=== PATIENT | female | born 1985 | race Caucasian/White ===

== ENCOUNTER 2018-10-27 01:01 | Emergency (ER) | payer MEDICAID ==
[~2018-10-27] VITALS: Ht 170.2 cm; Wt 111.6 kg
[2018-10-27 01:04] VITALS: BP 133/86
== END 2018-10-27 02:25 | disposition home or self-care (01) ==
LOC: ED 02:19
DX: J02.8 Acute pharyngitis due to other specified organisms (principal); B97.89 Other viral agents as the cause of diseases classified elsewhere
CPT/HCPCS: 87081; 87147; 87880; 99284

== ENCOUNTER 2019-08-21 05:47 | Emergency (ER) | payer MEDICAID ==
[~2019-08-21] VITALS: Ht 170.2 cm; Wt 110.0 kg
--- NOTE | 2019-08-21 06:11 | NUR ---
PT RESTING ON GURNEY, MONITORS APPLIED, SIDERAILS UP X2, CALL LIGHT WITHIN REACH
--- NOTE | 2019-08-21 06:45 | NUR ---
REPORT GIVEN TO TANIA BEASLEY
[2019-08-21 07:06] VITALS: BP 124/76
== END 2019-08-21 07:08 | disposition home or self-care (01) ==
LOC: ED 06:24
DX: S29.012A Strain of muscle and tendon of back wall of thorax, initial encounter (principal); S29.011A Strain of muscle and tendon of front wall of thorax, initial encounter; F17.200 Nicotine dependence, unspecified, uncomplicated; V49.59XA Passenger injured in collision with other motor vehicles in traffic accident, initial encounter; Y93.89 Activity, other specified; Y92.89 Other specified places as the place of occurrence of the external cause; Y99.8 Other external cause status
CPT/HCPCS: 99284

== ENCOUNTER 2019-11-23 20:29 | Emergency (ER) | payer MEDICAID ==
[~2019-11-23] VITALS: Ht 170.2 cm; Wt 104.9 kg
[2019-11-23 20:37] VITALS: BP 130/84
--- NOTE | 2019-11-23 20:54 | NUR ---
Pt here for lower back pain. Pt would a like a perscription for what she was given last time she was here for her back pain. Pt denies any new trauma and reports most of pain is in lower back. Pt resting in bed and nadn. vss
[2019-11-23] MEDS ORDERED: KETOROLAC 30 MG/1 ML IM ONE (21:00)
[2019-11-23] MEDS ORDERED: METHOCARBAMOL 750 MG TABLET PO ONE (21:00)
[2019-11-23] MEDS ORDERED: KETOROLAC 60 MG/2 ML ONE (21:06)
[2019-11-23] MEDS ORDERED: METHOCARBAMOL 750 MG TABLET ONE (21:06)
--- NOTE | 2019-11-23 21:28 | NUR ---
Patient/Caregiver given discharge instructions and they have confirmed that they understand the instructions. Patient ambulatory with steady gait.
== END 2019-11-23 21:30 | disposition home or self-care (01) ==
LOC: ED 21:29
DX: S39.012A Strain of muscle, fascia and tendon of lower back, initial encounter (principal); F17.200 Nicotine dependence, unspecified, uncomplicated; V89.2XXA Person injured in unspecified motor-vehicle accident, traffic, initial encounter; Y93.89 Activity, other specified; Y92.89 Other specified places as the place of occurrence of the external cause; Y99.8 Other external cause status
CPT/HCPCS: 96372; 99283; J1885

== ENCOUNTER 2020-02-06 19:37 | Emergency (ER) | payer MEDICAID ==
[~2020-02-06] VITALS: Ht 170.2 cm; Wt 107.6 kg
[2020-02-06 20:16] LABS: HCG UR SG 1.015 (1.003-1.030)
[2020-02-06 20:17] LABS: MICROSCOPIC INDICATED
--- NOTE | 2020-02-06 22:14 | NUR ---
pt called to room from lobby
--- NOTE | 2020-02-06 23:09 | NUR ---
PT PRESENTS TO THE ER TODAY FOR FLANK PAIN. STATES HER BACK STARTED HURTING AFTER MOVING FURINTURE LAST WEEK. PT ALSO C/O RIGHT SIDE ABD PAIN. PT STATES SHE WAS TESTED FOR GONORRHEA, UNCLEAR IF TREATED AND SHE HAD AN THIS WEEK.
[2020-02-06] MEDS ORDERED: CEFTRIAXONE 250 MG IM ONE (23:30)
[2020-02-06] MEDS ORDERED: AZITHROMYCIN 500 MG TABLET PO ONE (23:30)
[2020-02-06] MEDS ORDERED: KETOROLAC 30 MG/1 ML IM ONE (23:30)
[2020-02-06] MEDS ORDERED: KETOROLAC 30 MG/1 ML ONE (23:44)
[2020-02-06] MEDS ORDERED: CEFTRIAXONE 250 MG ONE (23:44)
[2020-02-06] MEDS ORDERED: AZITHROMYCIN 500 MG TABLET ONE (23:44)
[2020-02-06] MEDS ORDERED: LIDOCAINE-MPF 1%, 2ML ONE (23:45)
[2020-02-06 23:58] VITALS: BP 120/66
== END 2020-02-07 00:13 | disposition home or self-care (01) ==
LOC: ED 22:45
DX: N10 Acute pyelonephritis (principal); N39.0 Urinary tract infection, site not specified; A64 Unspecified sexually transmitted disease; F17.210 Nicotine dependence, cigarettes, uncomplicated
CPT/HCPCS: 81001; 81025; 87077; 87086; 87491; 87591; 96372; 99284; 99406; J0696; J1885; 87186

== ENCOUNTER 2020-03-07 14:24 | Emergency (ER) | payer MEDICAID ==
[~2020-03-07] VITALS: Ht 170.2 cm; Wt 110.0 kg
[2020-03-07 15:38] LABS: BASOPHILS % (AUTO) 1 % (0-1); EOSINOPHILS % (AUTO) 2 % (1-7); LYMPHOCYTES % (AUTO) 39 % (22-44); MEAN CORPUSCULAR HEMOGLOBIN 26.6 pg (27.0-34.8); MEAN CORPUSCULAR HGB CONC 32.9 g/dL (32.4-35.8); MEAN PLATELET VOLUME 8.2 fL (7.4-10.4); MONOCYTES % (AUTO) 6 % (2-9); NEUTROPHILS % (AUTO) 53 % (42-75); PLATELET COUNT 291 x10^3/uL (130-400); RED BLOOD COUNT 5.11 x10^6/uL (3.82-5.3); RED CELL DISTRIBUTION WIDTH 16.5 % (9.6-15.2)
[2020-03-07 15:40] LABS: MD NO
--- NOTE | 2020-03-07 15:47 | NUR ---
TABLE FILLER: PT AMBULATORY TO ROOM FROM LOBBY
[2020-03-07 15:50] LABS: ALANINE AMINOTRANSFERASE 30 U/L (12-78); ALBUMIN 4.1 g/dL (3.4-5.0); ANION GAP 4 mmol/L (5-15); CALCIUM 9.5 mg/dL (8.5-10.1); CHLORIDE 106 mmol/L (98-107)
[2020-03-07 15:54] LABS: ALKALINE PHOSPHATASE 76 U/L (45-117); BILIRUBIN,TOTAL 0.3 mg/dL (0.2-1.0); TOTAL PROTEIN 8.6 g/dL (6.4-8.2)
--- NOTE | 2020-03-07 15:59 | NUR ---
FIRST ENCOUNTER WITH PT: PT PRESENTED TO ED D/T CPX1 WEEK. PT STATES CP RADIATES TO BACK AND RIGHT ARMPIT. +SOB. DENIES N/V.
[2020-03-07 16:04] LABS: MICROSCOPIC AUTO
--- NOTE | 2020-03-07 16:58 | NUR ---
PT BEING DC HOME IN A STABLE CONDITION. DC INSTRUCTIONS DISCUSSED WITH PT. PT VERBALIZED UNDERSTANDING. NO FURTHER QUESTIONS OR CONCERNS EXPRESSED AT THAT TIME.
[2020-03-07 16:59] VITALS: BP 115/71
== END 2020-03-07 17:00 | disposition home or self-care (01) ==
LOC: ED 16:50
DX: M94.0 Chondrocostal junction syndrome [Tietze] (principal); R07.89 Other chest pain; R10.9 Unspecified abdominal pain; F17.200 Nicotine dependence, unspecified, uncomplicated
CPT/HCPCS: 36415; 71045; 76700; 80053; 81001; 83690; 84703; 85025; 87086; 93005; 99285

== ENCOUNTER 2020-08-05 00:33 | Inpatient (IN) | payer MEDICAID ==
[~2020-08-05] VITALS: Ht 170.2 cm; Wt 113.6 kg
[2020-08-05 01:11] LABS: MICROSCOPIC INDICATED
[2020-08-05 01:22] VITALS: BP 122/73
[2020-08-05] MEDS ORDERED: TERBUTALINE 1 MG/ML, 1ML ONE (01:49)
[2020-08-05] MEDS ORDERED: TERBUTALINE 1 MG/ML, 1ML SQ ONE (02:00)
[2020-08-05] MEDS: LACTATED RINGERS 1,000 ML IV SCH ×7 (03:45→20:00)
[2020-08-05] MEDS ORDERED: MAGNESIUM SULF. PMX 20GM/500ML 500 ML IV SCH (04:30)
[2020-08-05] MEDS ORDERED: MAGNESIUM SULFATE PMX 2GM/50ML 50 ML IVPB ONE (04:30)
[2020-08-05] MEDS ORDERED: MAGNESIUM SULFATE PMX 4GM/100M 100 ML IVPB ONE (04:30)
[2020-08-05] MEDS ORDERED: BETAMETHASONE 6 MG/ML, 5ML IM SCH (04:30)
[2020-08-05 07:28] LABS: BASOPHILS % (AUTO) 0 % (0-1); EOSINOPHILS % (AUTO) 0 % (1-7); LYMPHOCYTES % (AUTO) 11 % (22-44); MEAN CORPUSCULAR HEMOGLOBIN 27.5 pg (27.0-34.8); MEAN CORPUSCULAR HGB CONC 32.5 g/dL (32.4-35.8); MEAN PLATELET VOLUME 7.8 fL (7.4-10.4); MONOCYTES % (AUTO) 6 % (2-9); NEUTROPHILS % (AUTO) 83 % (42-75); PLATELET COUNT 249 x10^3/uL (130-400)
[2020-08-05 07:56] LABS: MD SCAN
[2020-08-05] MEDS ORDERED: SODIUM CITRATE/CITRIC ACID 15 ML UDC ONE ×2 (08:54→08:59)
[2020-08-05] MEDS ORDERED: METOCLOPRAMIDE 5 MG/ML, 2ML ONE ×2 (08:54→08:59)
[2020-08-05] MEDS ORDERED: LACTATED RINGERS 1,000 ML IV SCH (09:00)
[2020-08-05] MEDS ORDERED: SODIUM CITRATE/CITRIC ACID 30 ML UDC PO ONE (09:00)
[2020-08-05] MEDS ORDERED: AZITHROMYCIN 500 MG in SODIUM CHLORIDE 0.9% 250 ML IV ONE (09:00)
[2020-08-05] MEDS ORDERED: ONDANSETRON 2MG/ML, 2ML IVPush ONE (09:00)
[2020-08-05] MEDS ORDERED: AMPICILLIN 2 GM in SODIUM CHLORIDE 0.9% 100 ML IV SCH (09:00)
[2020-08-05] MEDS ORDERED: LACTATED RINGERS 1,000 ML IVBOLUS ONE (09:00)
[2020-08-05] MEDS ORDERED: NEWBORN KIT ONE (09:02)
[2020-08-05] MEDS ORDERED: OXYTOCIN 30U/ 0.9% NaCL 500ML 500 ML ONE (09:15)
[2020-08-05] MEDS ORDERED: FENTANYL PF 100 MCG/2ML ONE (09:19)
[2020-08-05 09:25] LABS: CLUE CELLS PRESENT (NONE SEEN); WET PREP WBCS MANY (FEW)
[2020-08-05] MEDS ORDERED: CEFAZOLIN 1,000 MG ONE ×2 (09:33)
[2020-08-05] MEDS ORDERED: ONDANSETRON 2MG/ML, 2ML ONE (09:34)
[2020-08-05] MEDS ORDERED: KETOROLAC 30 MG/1 ML ONE (09:34)
[2020-08-05] MEDS ORDERED: SODIUM CHLORIDE 0.9% PF 10ML ONE ×2 (09:34)
[2020-08-05] MEDS ORDERED: EPHEDRINE 50 MG/ML, 1ML ONE (09:34)
[2020-08-05] MEDS ORDERED: PHENYLEPHRINE 10 MG/ML ONE (09:34)
[2020-08-05] MEDS ORDERED: OXYTOCIN 10 UNITS/ML, 1ML ONE ×4 (09:34→11:05)
[2020-08-05 09:53] LABS: AMPHETAMINE SCREEN, URINE Negative (Negative); BARBITURATE SCREEN, URINE Negative (Negative); BENZODIAZEPINE SCREEN, URINE Negative (Negative); CANNABINOID SCREEN, URINE Negative (Negative); COCAINE SCREEN, URINE Negative (Negative); METHADONE SCREEN, URINE Negative (Negative); OPIATE SCREEN, URINE Negative (Negative)
[2020-08-05] MEDS ORDERED: IBUPROFEN 800 MG TABLET PO PRN (10:00)
[2020-08-05] MEDS ORDERED: MISOPROSTOL 200 MCG TABLET PR PRN (10:00)
[2020-08-05] MEDS ORDERED: ONDANSETRON 2MG/ML, 2ML IV PRN (10:00)
[2020-08-05] MEDS ORDERED: SIMETHICONE 80 MG CHEW TAB PO PRN (10:00)
[2020-08-05] MEDS ORDERED: HYDROmorphone 1 MG/ML, 1ML INJ ONE (10:37)
[2020-08-05] MEDS ORDERED: GENTAMICIN PER PHARMACY MC SCH (11:30)
[2020-08-05] MEDS: KETOROLAC 30 MG/1 ML IV SCH ×3 (11:52→23:57)
[2020-08-05] MEDS: OXYTOCIN 30U/ 0.9% NaCL 500ML 500 ML IV SCH ×2 (12:00→20:00)
[2020-08-05] MEDS ORDERED: GENTAMICIN 160 MG in SODIUM CHLORIDE 0.9% 50 ML IV SCH (12:30)
[2020-08-05] MEDS ORDERED: OXYcodone 5 MG/5 ML ORAL.SOL UDC ONE (12:48)
[2020-08-05] MEDS ORDERED: OXYcodone 5 MG/5 ML ORAL.SOL UDC PO PRN ×2 (13:00)
[2020-08-05 13:30] VITALS: BP 117/70
[2020-08-05] MEDS: GENTAMICIN 160 MG in SODIUM CHLORIDE 0.9% 50 ML IV SCH ×2 (14:12→21:38)
[2020-08-05] MEDS ORDERED: HYDROmorphone 1 MG/ML, 1ML INJ IVPush PRN (14:30)
[2020-08-05] MEDS: AMPICILLIN 2 GM in SODIUM CHLORIDE 0.9% 100 ML IV SCH ×2 (14:55→20:58)
[2020-08-05] MEDS: CLINDAMYCIN PMX 900MG/50ML 50 ML IV SCH ×2 (15:41→23:25)
[2020-08-05] MEDS ORDERED: PHARMACOKINETIC CONSULTATION MC ONE (17:00)
[2020-08-05] MEDS ORDERED: PHARMACOKINETIC MONITORING MC PRN (17:00)
[2020-08-05] MEDS: OXYcodone/APAP 5/325MG TABLET PO PRN ×2 (17:30→21:38)
[2020-08-05 17:37] VITALS: BP 102/70
[2020-08-05 19:02] LABS: BASOPHILS % (AUTO) 0 % (0-1); EOSINOPHILS % (AUTO) 0 % (1-7); LYMPHOCYTES % (AUTO) 6 % (22-44); MEAN CORPUSCULAR HEMOGLOBIN 27.4 pg (27.0-34.8); MEAN CORPUSCULAR HGB CONC 32.8 g/dL (32.4-35.8); MEAN PLATELET VOLUME 7.9 fL (7.4-10.4); MONOCYTES % (AUTO) 4 % (2-9); NEUTROPHILS % (AUTO) 90 % (42-75); PLATELET COUNT 240 x10^3/uL (130-400); RED BLOOD COUNT 3.89 x10^6/uL (3.82-5.3)
[2020-08-05 19:06] LABS: MD NO
[2020-08-05 19:52] VITALS: BP 130/80
[2020-08-05] MEDS: DOCUSATE 100 MG CAPSULE PO SCH (21:38)
[2020-08-06] VITALS: BP 104/71
[2020-08-06] MEDS: LACTATED RINGERS 1,000 ML IV SCH ×8 (02:00→20:10)
[2020-08-06] MEDS: AMPICILLIN 2 GM in SODIUM CHLORIDE 0.9% 100 ML IV SCH ×2 (03:00→09:28)
[2020-08-06] MEDS: OXYcodone/APAP 5/325MG TABLET PO PRN ×4 (03:56→21:44)
[2020-08-06 04:00] VITALS: BP 112/71
[2020-08-06] MEDS: GENTAMICIN 160 MG in SODIUM CHLORIDE 0.9% 50 ML IV SCH (05:31)
[2020-08-06] MEDS: OXYTOCIN 30U/ 0.9% NaCL 500ML 500 ML IV SCH ×2 (06:00→17:06)
[2020-08-06] MEDS: KETOROLAC 30 MG/1 ML IV SCH (06:03)
[2020-08-06 07:25] VITALS: BP 104/70
[2020-08-06] MEDS: CLINDAMYCIN PMX 900MG/50ML 50 ML IV SCH (07:34)
[2020-08-06] MEDS: DOCUSATE 100 MG CAPSULE PO SCH ×2 (07:58→20:37)
[2020-08-06] MEDS: PRENATAL VIT/IRON/FA 1 EACH TABLET PO SCH (07:59)
[2020-08-06] MEDS: POLYETHYLENE GLYCOL 17 GM PACKET PO SCH (07:59)
[2020-08-06 08:21] LABS: BASOPHILS % (AUTO) 0 % (0-1); EOSINOPHILS % (AUTO) 0 % (1-7); LYMPHOCYTES % (AUTO) 10 % (22-44); MEAN CORPUSCULAR HEMOGLOBIN 27.6 pg (27.0-34.8); MEAN CORPUSCULAR HGB CONC 32.5 g/dL (32.4-35.8); MEAN PLATELET VOLUME 8.2 fL (7.4-10.4); MONOCYTES % (AUTO) 4 % (2-9); NEUTROPHILS % (AUTO) 86 % (42-75); PLATELET COUNT 240 x10^3/uL (130-400); RED BLOOD COUNT 3.67 x10^6/uL (3.82-5.3); RED CELL DISTRIBUTION WIDTH 15.1 % (9.6-15.2)
[2020-08-06 09:02] LABS: MD SCAN
[2020-08-06] MEDS: CHOLECALCIFEROL 5,000u TAB PO SCH (09:28)
[2020-08-06 16:50] VITALS: BP 107/72
[2020-08-06 19:35] VITALS: BP 108/75
[2020-08-06] MEDS ORDERED: IBUPROFEN 600 MG TABLET ONE (20:36)
[2020-08-06] MEDS: IBUPROFEN 600 MG TABLET PO PRN (20:37)
[2020-08-07] MEDS: LACTATED RINGERS 1,000 ML IV SCH ×9 (02:00→22:00)
[2020-08-07] MEDS: OXYTOCIN 30U/ 0.9% NaCL 500ML 500 ML IV SCH ×3 (02:00→22:00)
[2020-08-07 03:30] VITALS: BP 125/84
[2020-08-07] MEDS: OXYcodone/APAP 5/325MG TABLET PO PRN ×3 (03:43→19:45)
[2020-08-07] MEDS: IBUPROFEN 600 MG TABLET PO PRN ×4 (03:43→23:22)
[2020-08-07 07:21] VITALS: BP 119/80
[2020-08-07] MEDS: DOCUSATE 100 MG CAPSULE PO SCH ×2 (09:00→19:42)
[2020-08-07] MEDS: FERROUS SULFATE 325 MG TABLET PO SCH ×2 (10:26→16:22)
[2020-08-07] MEDS: PRENATAL VIT/IRON/FA 1 EACH TABLET PO SCH (10:26)
[2020-08-07] MEDS: POLYETHYLENE GLYCOL 17 GM PACKET PO SCH (10:26)
[2020-08-07] MEDS: CHOLECALCIFEROL 5,000u TAB PO SCH (11:00)
[2020-08-07 13:00] VITALS: BP 124/85
[2020-08-07 19:30] VITALS: BP 131/84
[2020-08-08] MEDS: LACTATED RINGERS 1,000 ML IV SCH ×8 (02:00→19:00)
[2020-08-08 07:45] VITALS: BP 129/87
[2020-08-08] MEDS: IBUPROFEN 600 MG TABLET PO PRN ×3 (07:51→23:02)
[2020-08-08] MEDS: DOCUSATE 100 MG CAPSULE PO SCH ×2 (07:51→21:02)
[2020-08-08] MEDS: POLYETHYLENE GLYCOL 17 GM PACKET PO SCH (07:51)
[2020-08-08] MEDS: FERROUS SULFATE 325 MG TABLET PO SCH ×2 (07:51→16:55)
[2020-08-08] MEDS: PRENATAL VIT/IRON/FA 1 EACH TABLET PO SCH (07:51)
[2020-08-08] MEDS: OXYcodone/APAP 5/325MG TABLET PO PRN ×3 (07:56→21:02)
[2020-08-08] MEDS: OXYTOCIN 30U/ 0.9% NaCL 500ML 500 ML IV SCH ×2 (08:00→18:00)
[2020-08-08] MEDS: CHOLECALCIFEROL 5,000u TAB PO SCH (16:54)
[2020-08-08 19:15] VITALS: BP 106/72
[2020-08-09] MEDS: OXYcodone/APAP 5/325MG TABLET PO PRN ×4 (01:37→12:50)
[2020-08-09] MEDS: LACTATED RINGERS 1,000 ML IV SCH ×4 (02:00→10:00)
[2020-08-09] MEDS: OXYTOCIN 30U/ 0.9% NaCL 500ML 500 ML IV SCH (04:00)
[2020-08-09 07:00] VITALS: BP 129/77
[2020-08-09] MEDS ORDERED: OXYC1TAB14 PO (07:27)
[2020-08-09] MEDS ORDERED: IBUP-1222 PO (07:27)
[2020-08-09] MEDS: PRENATAL VIT/IRON/FA 1 EACH TABLET PO SCH (08:36)
[2020-08-09] MEDS: DOCUSATE 100 MG CAPSULE PO SCH (08:36)
[2020-08-09] MEDS: FERROUS SULFATE 325 MG TABLET PO SCH (08:36)
[2020-08-09] MEDS: IBUPROFEN 600 MG TABLET PO PRN (08:37)
[2020-08-09] MEDS: POLYETHYLENE GLYCOL 17 GM PACKET PO SCH (09:00)
[2020-08-09] MEDS: CHOLECALCIFEROL 5,000u TAB PO SCH (10:30)
== END 2020-08-09 14:05 | disposition home or self-care (01) | DRG 787 ==
LOC: LDOP 00:33 → LDIP 03:57 → 2NW 13:57
PROVIDERS: ADMIT Obstetrics & Gynecology; ATTEND Obstetrics & Gynecology
PROC: 10D00Z1 Extraction of Products of Conception, Low, Open Approach (ICD-10-PCS; principal; 2020-08-05)
DX: O60.12X0 Preterm labor second trimester with preterm delivery second trimester, not applicable or unspecified (principal); D62 Acute posthemorrhagic anemia; Z3A.25 25 weeks gestation of pregnancy; O32.8XX0 Maternal care for other malpresentation of fetus, not applicable or unspecified; Z37.0 Single live birth; O16.4 Unspecified maternal hypertension, complicating childbirth; O99.334 Smoking (tobacco) complicating childbirth; Z20.822 Contact with and (suspected) exposure to COVID-19
CPT/HCPCS: 36415; 76817; 80307; 81001; 83735; 85025; 86592; 86850; 86900; 87070; 87075; 87081; 87086; 87147; 87205; 87210; 87491; 87591; 87635; 87808; 88305; 89060; G0378; J0290; J0456; J0690; J0702; J1170; J1885; J2405; J3010; J1580; J2370; J2590; J3105; J3475; J7050; J7120; Q0114